=== PATIENT | female | born 1970 | race Asian ===

== ENCOUNTER 2019-06-23 09:42 | Day surgery (SDC) | payer OTHER | END 2019-06-23 13:05 | disposition home or self-care (01) | LOC: OR 09:42 | PROC: 3E0T3TZ Introduction of Destructive Agent into Peripheral Nerves and Plexi, Percutaneous Approach (ICD-10-PCS; principal; 2019-06-23) | PROC: BR16YZZ Fluoroscopy of Lumbar Facet Joint(s) using Other Contrast (ICD-10-PCS; 2019-06-23) | DX: M47.817 Spondylosis without myelopathy or radiculopathy, lumbosacral region (principal) | CPT/HCPCS: J2001 ==